=== PATIENT | male | born 2000 | race Caucasian/White ===

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

== ENCOUNTER → 2021-01-26 09:05 | Outpatient (BNVA) | payer OTHER, SELFPAY | PROVIDERS: Family Provider General Practice; PCP Nurse Practitioner Family; Visit Provider Dermatology | DX: L70.0 Acne vulgaris (principal) | CPT/HCPCS: 84450; 84460; 84478 ==